=== PATIENT | female | born 1950 | race African-American/Black ===

== ENCOUNTER 2016-12-18 08:18 | Emergency (ER) | payer MEDICARE, MEDICAID ==
[~2016-12-18] VITALS: Ht 162.6 cm; Wt 72.0 kg
[~2016-12-18 08:18] MED LIST: FISH OIL PO; IBUPROFEN PO; TUMS PO; VIT C PO; VIT D PO; VIT E PO; [UNRECOGNIZED DRUG - OTHER] PO
[2016-12-18 08:27] VITALS: BP 142/64
[2016-12-18] MEDS ORDERED: UNKNOWN BP MEDS (08:29)
[2016-12-18] MEDS ORDERED: KETOROLAC 30MG/ML VIAL IM ONE (09:00)
== END 2016-12-18 11:00 | disposition home or self-care (01) ==
LOC: ER 08:53
DX: S90.121A Contusion of right lesser toe(s) without damage to nail, initial encounter (principal); X58.XXXA Exposure to other specified factors, initial encounter; Y93.89 Activity, other specified; Y92.89 Other specified places as the place of occurrence of the external cause; I10 Essential (primary) hypertension; Z88.5 Allergy status to narcotic agent; Z91.013 Allergy to seafood; J45.909 Unspecified asthma, uncomplicated
CPT/HCPCS: 93971; 96372; 99284; J1885

== ENCOUNTER 2017-02-11 02:23 | Emergency (ER) | payer MEDICARE, MEDICAID ==
[~2017-02-11] VITALS: Ht 162.6 cm; Wt 73.7 kg
[~2017-02-11 02:23] MED LIST changes: +UNKNOWN BP MEDS
[2017-02-11 04:06] LABS: BASOPHILS % 1.3 % (0.0-2.0); EOSINOPHILS % 4.8 % (0.0-5.0); HEMATOCRIT. 36.8 % (36.0-48.0); HEMOGLOBIN. 12.7 g/dL (12.0-16.0); LYMPHOCYTES % 44.2 % (20.0-50.0); MEAN CORPUSCULAR HEMOGLOBIN 27.7 pg (28.0-32.0); MEAN CORPUSCULAR VOLUME 80.3 fL (81.0-99.0); MEAN PLATELET VOLUME 8.2 fl (7.4-10.4); MONOCYTES % 6.3 % (2.0-8.0); NEUTROPHILS % 43.4 % (40.0-76.0); PLATELET 172 x1000/uL (130-400); RED BLOOD CELL COUNT 4.58 mill/uL (4.2-5.4); RED CELL DISTRIBUTION WIDTH 14.5 % (11.6-14.6)
[2017-02-11 04:19] LABS: CARBON DIOXIDE 26 mEq/L (21-32); CHLORIDE 107 mEq/L (98-107); TROPONIN I < 0.02 ng/mL (0.00-0.04)
[2017-02-11 06:05] VITALS: BP 117/60
== END 2017-02-11 06:10 | disposition home or self-care (01) ==
LOC: ER 02:23
DX: M54.12 Radiculopathy, cervical region (principal); R51 Headache; R20.0 Anesthesia of skin; I10 Essential (primary) hypertension; J45.909 Unspecified asthma, uncomplicated; Z88.6 Allergy status to analgesic agent; Z91.013 Allergy to seafood
CPT/HCPCS: 36415; 70450; 71010; 72125; 80048; 84484; 85025; 93005; 99285

== ENCOUNTER 2017-03-19 01:18 | Emergency (ER) | payer MEDICARE, MEDICAID ==
[~2017-03-19] VITALS: Ht 162.6 cm; Wt 69.0 kg
[2017-03-19] MEDS ORDERED: MORPHINE SULFATE 4 MG/ML CPJ (NOT FOR IM USE) IV STA (02:02)
[2017-03-19] MEDS ORDERED: ONDANSETRON HCL 4MG/2ML VIAL IV STA (02:02)
[2017-03-19 02:24] LABS: CLARITY URINE CLEAR (CLEAR); COLOR URINE YELLOW (YELLOW); GLUCOSE URINE NEGATIVE (NEGATIVE); KETONES URINE NEGATIVE (NEGATIVE); LEUKOCYTE ESTERASE URINE NEGATIVE (NEGATIVE); NITRITE URINE NEGATIVE (NEGATIVE); OCCULT BLOOD URINE NEGATIVE (NEGATIVE); PROTEIN URINE NEGATIVE (NEGATIVE); SPECIFIC GRAVITY URINE 1.023 (1.005-1.030)
[2017-03-19 02:29] LABS: BASOPHILS % 1.1 % (0.0-2.0); EOSINOPHILS % 3.6 % (0.0-5.0); HEMATOCRIT. 36.8 % (36.0-48.0); HEMOGLOBIN. 12.2 g/dL (12.0-16.0); LYMPHOCYTES % 42.9 % (20.0-50.0); MEAN CORPUSCULAR HEMOGLOBIN 26.8 pg (28.0-32.0); MEAN CORPUSCULAR VOLUME 81.1 fL (81.0-99.0); MEAN PLATELET VOLUME 8.1 fl (7.4-10.4); MONOCYTES % 8.4 % (2.0-8.0); PLATELET 211 x1000/uL (130-400); RED BLOOD CELL COUNT 4.54 mill/uL (4.2-5.4); RED CELL DISTRIBUTION WIDTH 14.2 % (11.6-14.6)
[2017-03-19 02:33] LABS: CHLORIDE 109 mEq/L (98-107)
[2017-03-19 02:36] LABS: PROTHROMBIN TIME 10.8 sec (9.4-11.6)
[2017-03-19 02:42] LABS: CARBON DIOXIDE 26 mEq/L (21-32)
[2017-03-19 04:55] VITALS: BP 137/82
== END 2017-03-19 04:59 | disposition home or self-care (01) ==
LOC: ER 01:18
DX: M54.5 Low back pain (principal); M54.30 Sciatica, unspecified side; J45.909 Unspecified asthma, uncomplicated; Z88.6 Allergy status to analgesic agent; Z91.013 Allergy to seafood; Z98.890 Other specified postprocedural states
CPT/HCPCS: 36415; 80053; 81003; 83690; 85025; 85610; 96374; 96375; 99284; J2270; J2405

== ENCOUNTER 2017-09-28 05:15 | Emergency (ER) | payer MEDICARE, MEDICAID ==
[~2017-09-28] VITALS: Ht 162.6 cm; Wt 69.0 kg
[2017-09-28] MEDS ORDERED: ONDANSETRON HCL 4MG/2ML VIAL IV STA (05:57)
[2017-09-28] MEDS ORDERED: MORPHINE SULFATE 4 MG/ML CPJ (NOT FOR IM USE) IV STA (05:57)
[2017-09-28] MEDS ORDERED: SODIUM CHLORIDE 0.9% 1,000 ML IV ONE (05:57)
[2017-09-28] MEDS ORDERED: FAMOTIDINE 20MG TABLET PO STA (05:57)
[2017-09-28] MEDS: FAMOTIDINE 20MG/2ML VIAL IV ONE ×2 (06:15→08:22)
[2017-09-28 06:17] LABS: BASOPHILS % 0.9 % (0.0-2.0); EOSINOPHILS % 2.9 % (0.0-5.0); HEMATOCRIT. 39.1 % (36.0-48.0); HEMOGLOBIN. 12.8 g/dL (12.0-16.0); LYMPHOCYTES % 31.6 % (20.0-50.0); MEAN CORPUSCULAR HEMOGLOBIN 26.1 pg (28.0-32.0); MEAN CORPUSCULAR VOLUME 79.7 fL (81.0-99.0); MEAN PLATELET VOLUME 8.2 fl (7.4-10.4); MONOCYTES % 6.1 % (2.0-8.0); NEUTROPHILS % 58.5 % (40.0-76.0); PLATELET 211 x1000/uL (130-400)
[2017-09-28 06:23] LABS: PARTIAL THROMBOPLASTIN TIME 25.7 sec (23.4-31.0); PROTHROMBIN TIME 10.7 sec (9.4-11.6)
[2017-09-28 06:26] LABS: CHLORIDE 103 mEq/L (98-107)
[2017-09-28 06:56] LABS: CLARITY URINE CLOUDY (CLEAR); COLOR URINE YELLOW (YELLOW); KETONES URINE NEGATIVE (NEGATIVE); LEUKOCYTE ESTERASE URINE NEGATIVE (NEGATIVE); NITRITE URINE NEGATIVE (NEGATIVE); OCCULT BLOOD URINE NEGATIVE (NEGATIVE); PROTEIN URINE NEGATIVE (NEGATIVE); SPECIFIC GRAVITY URINE 1.015 (1.005-1.030)
[2017-09-28 09:32] VITALS: BP 127/66
== END 2017-09-28 09:42 | disposition home or self-care (01) ==
LOC: ER 05:15
DX: K80.70 Calculus of gallbladder and bile duct without cholecystitis without obstruction (principal); I10 Essential (primary) hypertension; J45.909 Unspecified asthma, uncomplicated; Z88.5 Allergy status to narcotic agent; Z91.013 Allergy to seafood; Z98.890 Other specified postprocedural states
CPT/HCPCS: 36415; 71045; 74176; 76705; 80053; 81003; 83690; 84484; 85025; 85610; 85730; 87086; 93005; 96361; 96374; 96375; 99285; J2270; J2405; J7030; J3490

== ENCOUNTER 2017-09-30 08:58 | Emergency (ER) | payer MEDICARE, MEDICAID ==
[~2017-09-30] VITALS: Ht 162.6 cm; Wt 69.0 kg
[2017-09-30] MEDS ORDERED: SODIUM CHLORIDE 0.9% 1,000 ML IV ONE (14:53)
[2017-09-30] MEDS ORDERED: KETOROLAC 30MG/ML VIAL IV STA (14:53)
[2017-09-30 15:17] LABS: CLARITY URINE CLOUDY (CLEAR); COLOR URINE ORANGE (YELLOW); KETONES URINE 1+ (NEGATIVE); LEUKOCYTE ESTERASE URINE 1+ (NEGATIVE); NITRITE URINE POSITIVE (NEGATIVE); OCCULT BLOOD URINE NEGATIVE (NEGATIVE); PROTEIN URINE 1+ (NEGATIVE); SPECIFIC GRAVITY URINE 1.031 (1.005-1.030)
[2017-09-30 15:29] LABS: BASOPHILS % 0.5 % (0.0-2.0); HEMATOCRIT. 36.7 % (36.0-48.0); HEMOGLOBIN. 12.1 g/dL (12.0-16.0); LYMPHOCYTES % 8.9 % (20.0-50.0); MEAN CORPUSCULAR HEMOGLOBIN 26.3 pg (28.0-32.0); MEAN CORPUSCULAR VOLUME 79.8 fL (81.0-99.0); MEAN PLATELET VOLUME 8.3 fl (7.4-10.4); MONOCYTES % 5.9 % (2.0-8.0); NEUTROPHILS % 84.7 % (40.0-76.0); PLATELET 145 x1000/uL (130-400); RED BLOOD CELL COUNT 4.61 mill/uL (4.2-5.4); RED CELL DISTRIBUTION WIDTH 14.1 % (11.6-14.6)
[2017-09-30 15:36] LABS: CHLORIDE 99 mEq/L (98-107)
[2017-09-30 15:50] LABS: INR 1.1; PROTHROMBIN TIME 11.2 sec (9.4-11.6)
[2017-09-30 19:00] VITALS: BP 177/77
== END 2017-09-30 19:07 | disposition home or self-care (01) ==
LOC: ER 08:58
DX: N39.0 Urinary tract infection, site not specified (principal); R31.0 Gross hematuria; J45.909 Unspecified asthma, uncomplicated; Z88.5 Allergy status to narcotic agent; Z87.891 Personal history of nicotine dependence; Z79.899 Other long term (current) drug therapy
CPT/HCPCS: 36415; 71045; 76770; 80053; 81003; 83690; 85025; 85610; 96361; 96374; 99285; J1885; J7030

== ENCOUNTER 2017-11-28 01:46 | Emergency (ER) | payer MEDICARE, MEDICAID ==
[~2017-11-28] VITALS: Ht 162.6 cm; Wt 72.0 kg
[2017-11-28 02:03] VITALS: BP 123/74
== END 2017-11-28 07:41 | disposition left against medical advice (07) ==
LOC: ER 01:46
DX: J02.9 Acute pharyngitis, unspecified (principal); Z53.21 Procedure and treatment not carried out due to patient leaving prior to being seen by health care provider

== ENCOUNTER 2017-11-28 11:45 | Emergency (ER) | payer MEDICARE, MEDICAID ==
[~2017-11-28] VITALS: Ht 162.6 cm; Wt 72.0 kg
[2017-11-28 11:49] VITALS: BP 141/54
== END 2017-11-28 15:36 | disposition home or self-care (01) ==
LOC: ER 12:39
DX: J02.9 Acute pharyngitis, unspecified (principal); I10 Essential (primary) hypertension; J45.909 Unspecified asthma, uncomplicated; Z88.5 Allergy status to narcotic agent; Z91.013 Allergy to seafood
CPT/HCPCS: 87070; 87430; 99284

== ENCOUNTER 2022-05-08 14:29 | Emergency (ER) | payer MEDICAID, MEDICARE ==
[~2022-05-08] VITALS: Ht 162.6 cm; Wt 75.0 kg
[2022-05-08] MEDS ORDERED: IBUPROFEN 400MG TABLET PO ONE (18:30)
[2022-05-08] MEDS ORDERED: ACETAMINOPHEN 325MG TABLET PO ONE (18:30)
[2022-05-08 18:31] LABS: CLARITY URINE CLEAR (CLEAR); COLOR URINE YELLOW (YELLOW); KETONES URINE TRACE (NEGATIVE); LEUKOCYTE ESTERASE URINE NEGATIVE (NEGATIVE); NITRITE URINE NEGATIVE (NEGATIVE); OCCULT BLOOD URINE NEGATIVE (NEGATIVE); PH URINE 5.5 (4.5-8.0); PROTEIN URINE NEGATIVE (NEGATIVE); UROBILINOGEN URINE 0.2 E.U./dL (0.2-1.0)
[2022-05-08 20:24] LABS: EOSINOPHILS % 1.7 % (0.0-5.0); HEMATOCRIT. 38.4 % (36.0-48.0); HEMOGLOBIN. 12.8 g/dL (12.0-16.0); LYMPHOCYTES % 45.8 % (20.0-50.0); MEAN CORPUSCULAR HEMOGLOBIN 26.2 pg (28.0-32.0); MEAN CORPUSCULAR VOLUME 78.7 fL (81.0-99.0); MEAN PLATELET VOLUME 8.8 fl (7.4-10.4); MONOCYTES % 7.1 % (2.0-8.0); NEUTROPHILS % 44.4 % (40.0-76.0); PLATELET 246 x1000/uL (130-400); RED BLOOD CELL COUNT 4.88 mill/uL (4.2-5.4); RED CELL DISTRIBUTION WIDTH 14.5 % (11.6-14.6)
[2022-05-08 20:31] LABS: CHLORIDE 106 mEq/L (98-107)
[2022-05-08 20:39] LABS: PROTHROMBIN TIME 10.8 sec (9.6-11.0)
[2022-05-08 22:00] VITALS: BP 124/78
[2022-05-08] MEDS ORDERED: TOPUD MT (22:33)
== END 2022-05-08 22:45 | disposition home or self-care (01) ==
LOC: ER 14:29 → SUPCPDRO 16:07 → ER 22:45
DX: R10.32 Left lower quadrant pain (principal); I10 Essential (primary) hypertension; J45.909 Unspecified asthma, uncomplicated; Z91.013 Allergy to seafood; Z88.5 Allergy status to narcotic agent
CPT/HCPCS: 36415; 74176; 80053; 81003; 83605; 85025; 99284

== ENCOUNTER 2022-07-27 23:43 | Emergency (ER) | payer MEDICARE, MEDICAID ==
[~2022-07-27] VITALS: Ht 162.6 cm; Wt 72.0 kg
[~2022-07-27 23:43] MED LIST changes: +TOPUD MT
[2022-07-28] MEDS ORDERED: AMLO10TA4 MT (00:45)
[2022-07-28] MEDS ORDERED: AMLODIPINE 10MG TABLET PO ONE (00:45)
[2022-07-28 00:57] VITALS: BP 186/88
== END 2022-07-28 01:02 | disposition home or self-care (01) ==
LOC: ER 23:43
DX: I10 Essential (primary) hypertension (principal); Z76.0 Encounter for issue of repeat prescription
CPT/HCPCS: 93005; 99283

== ENCOUNTER 2022-08-20 16:45 | Emergency (ER) | payer MEDICARE, MEDICAID ==
[~2022-08-20] VITALS: Ht 162.6 cm; Wt 73.0 kg
[~2022-08-20 16:45] MED LIST changes: +AMLO10TA4 MT
[2022-08-20 18:33] VITALS: BP 125/68
[2022-08-20] MEDS ORDERED: ASPIRIN 81MG TABLET PO ONE (19:30)
[2022-08-20 20:03] LABS: EOSINOPHILS % 2.1 % (0.0-5.0); HEMATOCRIT. 39.8 % (36.0-48.0); HEMOGLOBIN. 12.9 g/dL (12.0-16.0); LYMPHOCYTES % 42.1 % (20.0-50.0); MEAN CORPUSCULAR HEMOGLOBIN 25.5 pg (28.0-32.0); MEAN CORPUSCULAR VOLUME 78.6 fL (81.0-99.0); MONOCYTES % 7.2 % (2.0-8.0); NEUTROPHILS % 47.6 % (40.0-76.0); PLATELET 241 x1000/uL (130-400); RED BLOOD CELL COUNT 5.06 mill/uL (4.2-5.4); RED CELL DISTRIBUTION WIDTH 14.4 % (11.6-14.6)
[2022-08-20 20:08] LABS: CHLORIDE 105 mEq/L (98-107)
[2022-08-20] MEDS: NITROGLYCERIN 0.4MG TABLET SL SL PRN ×2 (21:27→21:28)
== END 2022-08-20 20:40 | disposition left against medical advice (07) ==
LOC: ER 17:10
DX: R07.89 Other chest pain (principal); I10 Essential (primary) hypertension; E78.00 Pure hypercholesterolemia, unspecified; J45.909 Unspecified asthma, uncomplicated; Z91.013 Allergy to seafood; Z88.5 Allergy status to narcotic agent
CPT/HCPCS: 36415; 71045; 80053; 83880; 84484; 85025; 85379; 93005; 99285

== ENCOUNTER 2022-11-05 12:46 | Emergency (ER) | payer MEDICARE, MEDICAID ==
[~2022-11-05] VITALS: Ht 162.6 cm; Wt 74.0 kg
[2022-11-05] MEDS ORDERED: METHOCARBAMOL 500MG TABLET PO ONE (14:30)
[2022-11-05] MEDS ORDERED: LIDOCAINE 5% PATCH TOP SCH (14:30)
[2022-11-05 15:13] LABS: CLARITY URINE CLEAR (CLEAR); COLOR URINE YELLOW (YELLOW); KETONES URINE NEGATIVE (NEGATIVE); LEUKOCYTE ESTERASE URINE NEGATIVE (NEGATIVE); NITRITE URINE NEGATIVE (NEGATIVE); OCCULT BLOOD URINE NEGATIVE (NEGATIVE); PH URINE 5.5 (4.5-8.0); PROTEIN URINE NEGATIVE (NEGATIVE); SPECIFIC GRAVITY URINE 1.015 (1.005-1.030); UROBILINOGEN URINE 0.2 E.U./dL (0.2-1.0)
[2022-11-05] MEDS ORDERED: LIDO700A15 TP (15:32)
[2022-11-05] MEDS ORDERED: DICL100G31 TP (15:32)
[2022-11-05] MEDS ORDERED: KETOROLAC 30MG/ML VIAL IM ONE (16:30)
[2022-11-05 16:47] LABS: BASOPHILS % 1.1 % (0.0-2.0); EOSINOPHILS % 3.5 % (0.0-5.0); HEMATOCRIT. 37.9 % (36.0-48.0); LYMPHOCYTES % 46.5 % (20.0-50.0); MEAN CORPUSCULAR HEMOGLOBIN 25.4 pg (28.0-32.0); MEAN CORPUSCULAR VOLUME 80.1 fL (81.0-99.0); MEAN PLATELET VOLUME 8.6 fl (7.4-10.4); MONOCYTES % 7.2 % (2.0-8.0); NEUTROPHILS % 41.7 % (40.0-76.0); PLATELET 180 x1000/uL (130-400); RED BLOOD CELL COUNT 4.73 mill/uL (4.2-5.4); RED CELL DISTRIBUTION WIDTH 14.7 % (11.6-14.6)
[2022-11-05 16:56] LABS: CHLORIDE 109 mEq/L (98-107)
[2022-11-05 17:17] VITALS: BP 118/67
[2022-11-05] MEDS ORDERED: ACET-2708 MT (18:26)
[2022-11-05] MEDS ORDERED: POLYETHYLENE GLYCOL 3350 (17GM) 1 DOSE PACK PO SCH (18:30)
[2022-11-05 19:23] LABS: PROTHROMBIN TIME 10.8 sec (9.6-11.0)
== END 2022-11-05 18:36 | disposition home or self-care (01) ==
LOC: ER 12:46
DX: M25.551 Pain in right hip (principal); M25.552 Pain in left hip; R10.31 Right lower quadrant pain; Z88.5 Allergy status to narcotic agent; Z88.8 Allergy status to other drugs, medicaments and biological substances; Z91.013 Allergy to seafood
CPT/HCPCS: 36415; 73521; 74176; 80053; 81003; 83690; 85025; 85610; 96372; 99285; J1885